=== PATIENT | female | born 1990 | race Caucasian/White ===

== ENCOUNTER 2017-11-19 13:31 | Emergency (ER) | payer MEDICAID, OTHER ==
[~2017-11-19] VITALS: Ht 163.8 cm; Wt 63.6 kg
[2017-11-19 13:49] VITALS: BP 113/77
--- NOTE | 2017-11-19 15:28 | NUR ---
PT AMBULATED TO OF1.
--- NOTE | 2017-11-19 15:32 | NUR ---
TONYA CHENG CHAPERONING ALTAF KELLEY IN TRIAGE FOR FEMALE BREAST EXAM.
--- NOTE | 2017-11-19 15:59 | NUR ---
26F BIB SELF C/O LEFT BREAST PAIN D/T "RED BUMP" THAT APPEARED ON LEFT BREAST X 2 DAYS. PT STATES NO RECENT TRAUMA OR INJURY TO SITE. HX: BL FIBROCYSTIC BREAST DISEASE RX: PT DENIES
[2017-11-19] MEDS ORDERED: ACETAMINOPHEN 325 MG TAB PO ONE (16:00)
[2017-11-19 16:10] VITALS: BP 119/82
--- NOTE | 2017-11-19 16:11 | NUR ---
Patient discharged with v/s stable. Written and verbal after care instructions given and explained. Patient alert, oriented and verbalized understanding of instructions. Ambulatory with steady gait. All questions addressed prior to discharge. ID band removed. Patient advised to follow up with PMD. Rx of keflex, ibuprofen given. Patient educated on indication of medication including possible reaction and side effects. Opportunity to ask questions provided and answered.
== END 2017-11-19 16:11 | disposition home or self-care (01) ==
LOC: MED 13:31
DX: N61.0 Mastitis without abscess (principal)
CPT/HCPCS: 99283